=== PATIENT | male | born 1975 | race African-American/Black ===

== ENCOUNTER 2017-04-07 23:20 | Emergency (ER) | payer OTHER ==
[~2017-04-07 23:20] MED LIST: CLA10 PO; MONTELUKAST SOD10 MG PO; PROAIR HFA0.09 MG/Ac IH
[2017-04-07 23:28] VITALS: BP 147/88
== END 2017-04-08 01:13 | disposition home or self-care (01) ==
LOC: ED 23:20
DX: S43.51XA Sprain of right acromioclavicular joint, initial encounter (principal); X58.XXXA Exposure to other specified factors, initial encounter; Y93.89 Activity, other specified; Y92.89 Other specified places as the place of occurrence of the external cause; Y99.8 Other external cause status
CPT/HCPCS: J2270; Q0162

== ENCOUNTER 2017-05-01 09:11 | Emergency (ER) | payer OTHER ==
[2017-05-01 11:29] VITALS: BP 130/85
== END 2017-05-01 11:29 | disposition home or self-care (01) ==
LOC: ED 09:11
DX: G89.29 Other chronic pain (principal); M25.511 Pain in right shoulder; J45.909 Unspecified asthma, uncomplicated

== ENCOUNTER 2017-05-07 11:36 | Emergency (ER) | payer OTHER ==
[~2017-05-07] VITALS: Ht 566.4 cm; Wt 101.2 kg
[2017-05-07 11:42] VITALS: BP 155/89
== END 2017-05-07 16:06 | disposition home or self-care (01) ==
LOC: ED 11:36
DX: S46.911A Strain of unspecified muscle, fascia and tendon at shoulder and upper arm level, right arm, initial encounter (principal); J45.909 Unspecified asthma, uncomplicated; X50.9XXA Other and unspecified overexertion or strenuous movements or postures, initial encounter; Y93.89 Activity, other specified; Y99.8 Other external cause status; Y92.89 Other specified places as the place of occurrence of the external cause

== ENCOUNTER 2017-05-14 04:41 | Emergency (ER) | payer BC ==
[2017-05-14 06:13] VITALS: BP 127/78
== END 2017-05-14 06:12 | disposition home or self-care (01) ==
LOC: ED 04:41
DX: K64.9 Unspecified hemorrhoids (principal); J45.909 Unspecified asthma, uncomplicated; Z79.899 Other long term (current) drug therapy